=== PATIENT | female | born 1995 | race African-American/Black ===

== ENCOUNTER 2018-11-12 18:10 | Emergency (ER) | payer SELFPAY ==
--- NOTE | 2018-11-12 18:16 | PDOC ---
Rapid Medical Evaluation Time Seen by Provider: 11/12/18 18:14 Medical Evaluation: 11/12/18 18:14 I have performed a brief in-person evaluation of this patient. The patient presents with a chief complaint of: abdominal pain x 2 weeks, vomiting today x1, denies fever, diarrhea. 7/10 pain. denies urinary symptoms , LMP 2 weeks ago. Pertinent physical exam findings: mild lower abd pain I have ordered the following: labs, urine The patient will proceed to the ED for further evaluation.
[2018-11-12 18:17] VITALS: TEMP 98.4; BMI 23.0
--- NOTE | 2018-11-12 19:43 | PDOC ---
History of Present Illness - General Chief Complaint: Pain Stated Complaint: ABD PAIN Time Seen by Provider: 11/12/18 18:14 - History of Present Illness Initial Comments: 23yo F with no significant PMH presenting with abdominal pain x 2 weeks. Patient states she has had lower abdominal pain that she describes as 'turning' intermittently for the past two weeks. Patient presents today because she would like to know what is going on and she does not have a primary care provider. Patient also endorses an acid sensation in her throat. She believes that her abdominal pain gets worse after eating fatty foods. Patient also reports intermittent nausea, but no vomiting. She denies dysuria or hematuria, but states that she had an episode of urinary urgency today. Last menstrual period was two weeks ago. Denies history of STIs. No surgical history. Patient reports intermittent diarrhea, alternating with constipation. Denies fever, cough, shortness of breath, or chest pain. PCP: none Past History - Past Medical History Allergies/Adverse Reactions: Allergies Allergy/AdvReac Type Severity Reaction Status Date / Time No Known Allergies Allergy Verified 11/12/18 18:16 Home Medications: Ambulatory Orders Cephalexin [Keflex] 500 mg PO BID #14 capsule 11/12/18 Omeprazole 20 mg PO DAILY #30 capsule. 11/12/18 COPD: No - Suicide/Smoking/Psychosocial Hx Smoking History: Never smoked Review of Systems - Review of Systems Comments:: Constitutional: no fever, no chills HEENT: no throat pain, no dysphagia Cardiovascular: no chest pain, no palpitations Respiratory: no cough, no shortness of breath Gastrointestinal: +abdominal pain, +nausea Genitourinary: no dysuria, +urgency Musculoskeletal: no myalgia, no arthralgia Skin: no rash, no itching Neurologic: no headache, no weakness *Physical Exam - Vital Signs Last Vital Signs Temp Pulse Resp BP Pulse Ox 98.4 F 69 18 112/70 100 11/12/18 18:16 11/12/18 18:16 11/12/18 18:16 11/12/18 18:16 11/12/18 18:16 - Physical Exam Comments: General: Awake, alert, and fully oriented, in no acute distress Head: No signs of trauma Eyes: EOMI, sclera anicteric ENT: Moist mucus membranes Neck: Normal ROM, supple Lungs: Lungs clear, Normal breath sounds Cardio: Regular rhythm, S1 and S2 present Abdomen: Mild diffuse tenderness most focal to suprapubic area, soft, nondistended No guarding, no rebound, no masses Extremities: Normal range of motion, Distal pulses present SKIN: Warm, Dry, normal turgor Neurologic: Cranial nerves II through XII grossly intact. Normal speech ED Treatment Course - LABORATORY CBC & Chemistry Diagram: 11/12/18 19:30 11/12/18 19:30 Medical Decision Making - Medical Decision Making 23yo F with no significant PMH presenting with abdominal pain x 2 weeks. DDX including but not limited to GERD, , UTI, gastritis, gastroenteritis, irritable bowel disease, appendicitis, pancreatitis Labs 4mg zofran, 20mg Pepcid, 1L NS 11/12/18 19:43 CBC WBC 6.9 K/mm3 (4.0-10.0) 11/12/18 19: RBC 4.61 M/mm3 (3.60-5.2) 11/12/18 19: Hgb 13.3 GM/dL (10.7-15.3) 11/12/18 19: Hct 41.3 % (32.4-45.2) 11/12/18 19: MCV 89.6 fl (80-96) 11/12/18 19: MCH 28.9 pg (25.7-33.7) 11/12/18 19: MCHC 32.3 g/dl (32.0-36.0) 11/12/18 19: RDW 13.2 % (11.6-15.6) 11/12/18 19: Plt Count 313 K/MM3 (134-434) 11/12/18 19: MPV 9.1 fl (7.5-11.1) 11/12/18 19:30 Absolute Neuts (auto) 3.5 K/mm3 (1.5-8.0) 11/12/18 19: Neutrophils % 50.6 % (42.8-82.8) 11/12/18 19:30 Lymphocytes % 39.5 % (8-40) 11/12/18 19: Monocytes % 7.7 % (3.8-10.2) 11/12/18 19: Eosinophils % 1.6 % (0-4.5) 05/23/19 19:30 Basophils % 0.6 % (0-2.0) 11/12/18 19:30 Nucleated RBC % 0 % (0-0) 11/12/18 19:30 No anemia or leukocytosis CMP Sodium 136 mmol/L (136-145) 11/12/18 19:30 Potassium 3.8 mmol/L (3.5-5.1) 11/12/18 19:30 Chloride 105 mmol/L (98-107) 11/12/18 19:30 Carbon Dioxide 25 mmol/L (21-32) 11/12/18 19:30 Anion Gap 6 MMOL/L (8-16) L 11/12/18 19:30 BUN 8 mg/dL (7-18) 11/12/18 19:30 Creatinine 0.7 mg/dL (0.55-1.3) 11/12/18 19:30 Est GFR (CKD-EPI)AfAm 141.54 11/12/18 19:30 Est GFR (CKD-EPI)NonAf 122.12 11/12/18 19:30 Random Glucose 81 mg/dL (74-106) 11/12/18 19:30 Calcium 9.3 mg/dL (8.5-10.1) 11/12/18 19:30 Total Bilirubin 0.9 mg/dL (0.2-1) 11/12/18 19:30 AST 10 U/L (15-37) L 11/12/18 19:30 ALT 17 U/L (13-61) 11/12/18 19:30 Alkaline Phosphatase 81 U/L (45-117) 11/12/18 19:30 Total Protein 7.6 g/dl (6.4-8.2) 11/12/18 19:30 Albumin 3.9 g/dl (3.4-5.0) 11/12/18 19: Lipase 109 U/L (73-393) 11/12/18 19:30 Electrolytes WNL Lipase normal Patient states she feels better UA positive for infection: Trace LE, 8 WBC, 232 bacteria Rocephin ordered Keflex prescribed for outpatient Discharged 11/12/18 21:03 *DC/Admit/Observation/Transfer Diagnosis at time of Disposition: UTI (urinary tract infection) Qualifiers: Urinary tract infection type: site unspecified Hematuria presence: without hematuria Qualified Code(s): N39.0 - Urinary tract infection, site not specified - Discharge Dispostion Disposition: HOME Condition at time of disposition: Stable - Prescriptions Prescriptions: Cephalexin [Keflex] 500 mg PO BID #14 capsule Omeprazole 20 mg PO DAILY #30 capsule.dr - Referrals Referrals: [facility] [place] [Provider Group] - Patient Instructions Printed Discharge Instructions: DI for Urinary Tract Infection (UTI), DI for Abdominal Pain-Adult - Post Discharge Activity Activity Comments: You came into the ED for abdominal pain. Urinalysis shows you have a UTI. Labs were otherwise within normal limits. Prescriptions sent to your pharmacy. Take as instructed on the label. Follow-up with a primary care doctor this week to discuss this ED visit and to further evaluate your chest pain. You have been referred to the [facility]. Call and make an appointment at the number provided. Your workup is not complete until you do so. Immediate medical attention is required if you have: you develop worsening pain , high fevers, persistent nausea, vomiting, or any new or concerning symptoms. If you think you are having an emergency, call for emergency medical services or present to the emergency department right away.
[2018-11-12 19:48] LABS: BASO % 0.6 % (0-2.0); EOS % 1.6 % (0-4.5); HEMATOCRIT 41.3 % (32.4-45.2); HEMOGLOBIN 13.3 GM/dL (10.7-15.3); LYMPH % 39.5 % (8-40); MCH 28.9 pg (25.7-33.7); MCHC 32.3 g/dl (32.0-36.0); MEAN CELL VOLUME 89.6 fl (80-96); MEAN PLT VOLUME 9.1 fl (7.5-11.1); MONO % 7.7 % (3.8-10.2); NEUT % 50.6 % (42.8-82.8); PLATELET COUNT 313 K/MM3 (134-434); RBC 4.61 M/mm3 (3.60-5.2); RDW 13.2 % (11.6-15.6); WHITE BLOOD COUNT 6.9 K/mm3 (4.0-10.0)
--- NOTE | 2018-11-12 20:01 | PDOC ---
Documentation entered by Mayra Ramey SCRIBE, acting as scribe for Shimon Duffy MD. Shimon Duffy MD: This documentation has been prepared by the kristinibe, Mayra Ramey SCRIBE, under my direction and personally reviewed by me in its entirety. I confirm that the documentation accurately reflects all work, treatment, procedures, and medical decision making performed by me. Attending Attestation - Resident Resident Name: Rhona Ignacio - [facility] HPI: 11/12/18 20:15 The patient is a 23-year-old female with no past medical history presents to the emergency department with abdominal pain. The patient presents with 2 weeks of lower abdominal pain, thats currently 7/10 in severity. The patient reports the pain does go up in severity; at worse, it is 10/10 in severity. Denies factor that aggravates or alleviates the pain. The patient reports associated symptoms of decreased PO intake, a single episode of urinary urgency, 3 days of constipation prior to she had diarrhea, and vomiting. The patient reports she had a single episode of NBNB emesis today, and a total of 5 episodes in the last 2 weeks. Allergies: NKDA
[2018-11-12] MEDS ORDERED: ONDANSETRON 4 MG/2 ML VIAL IVPUSH ONE (20:02)
[2018-11-12] MEDS ORDERED: FAMOTIDINE 20 MG/50 ML IVPB 20 MG/50 ML MG IVPB ONE ×2 (20:02→20:05)
[2018-11-12] MEDS ORDERED: SODIUM CHLORIDE 1,000 ML IV STA (20:02)
[2018-11-12] MEDS ORDERED: ONDANSETRON 4 MG/2 ML VIAL ONE (20:05)
[2018-11-12 20:19] LABS: ALBUMIN 3.9 g/dl (3.4-5.0); BILIRUBIN,TOTAL 0.9 mg/dL (0.2-1); CALCIUM 9.3 mg/dL (8.5-10.1); CREATININE 0.7 mg/dL (0.55-1.3); POTASSIUM 3.8 mmol/L (3.5-5.1); TOT PROT 7.6 g/dl (6.4-8.2)
[2018-11-12 20:20] LABS: EPI CELLS 19.5 /HPF (0-5/HPF); HYALINE CASTS 9 /lpf (0-8); PH,URINE 5.5 (5.0-8.0); URINE APPEARANCE CLOUDY; URINE BACTERIA 232.2 /hpf (NEGATIVE); URINE BILIRUBIN NEGATIVE (NEGATIVE); URINE COLOR YELLOW; URINE GLUCOSE (UA) NEGATIVE (NEGATIVE); URINE KETONE TRACE (NEGATIVE); URINE LEUK ESTERASE TRACE (NEGATIVE); URINE NITRITE NEGATIVE (NEGATIVE); URINE PROTEIN NEGATIVE (NEGATIVE); URINE RBC 1 /hpf (0-4); URINE WBC 8 /hpf (0-5)
[2018-11-12] MEDS ORDERED: CEFTRIAXONE 1,000 MG in DEXTROSE 5%-WATER - 50 ML IVPB ONE (20:48)
[2018-11-12] MEDS ORDERED: CEFTRIAXONE 1 GM/50 ML BAG ONE (20:56)
[2018-11-12 21:32] VITALS: BP 107/72; PULSE 65
== END 2018-11-12 21:32 | disposition home or self-care (01) ==
LOC: JER 18:10
PROC: 3E0337Z Introduction of Electrolytic and Water Balance Substance into Peripheral Vein, Percutaneous Approach (ICD-10-PCS; principal; 2018-11-12)
PROC: 3E033GC Introduction of Other Therapeutic Substance into Peripheral Vein, Percutaneous Approach (ICD-10-PCS; 2018-11-12)
PROC: 3E033GC Introduction of Other Therapeutic Substance into Peripheral Vein, Percutaneous Approach (ICD-10-PCS; 2018-11-12)
PROC: 3E03329 Introduction of Other Anti-infective into Peripheral Vein, Percutaneous Approach (ICD-10-PCS; 2018-11-12)
DX: N39.0 Urinary tract infection, site not specified (principal)
CPT/HCPCS: 36415; 80053; 81003; 83690; 84703; 85025; 99283-25; J7030

== ENCOUNTER 2018-12-14 16:25 | Emergency (ER) | payer SELFPAY | END 2018-12-16 03:24 | disposition short-term general hospital (02) | LOC: JER 12-16 03:24 | DX: R45.851 Suicidal ideations (principal); F31.9 Bipolar disorder, unspecified ==